=== PATIENT | female | born 1980 | race Caucasian/White ===

== ENCOUNTER 2018-03-09 16:31 | Emergency (ER) | payer OTHER ==
[2018-03-09 17:06] VITALS: BP 107/65; PULSE 83; TEMP 99.1; BMI 23.0
--- NOTE | 2018-03-09 17:14 | PDOC ---
Rapid Medical Evaluation Chief Complaint: Pain Time Seen by Provider: 03/09/18 17:05 Medical Evaluation: Allergies Allergy/AdvReac Type Severity Reaction Status Date / Time No Known Allergies Allergy Verified 03/09/18 17:03 Vital Signs Temp Pulse Resp BP Pulse Ox 99.1 F 83 18 107/65 100 03/09/18 17:03 03/09/18 17:03 03/09/18 17:03 03/09/18 17:03 03/09/18 17:03 03/09/18 17:10 I have performed a brief in-person evaluation of this patient. The patient presents with a chief complaint of: advised by PCP to come to ED due to possible kidney problem . patient report lower back pains which has been intermittent for months now. pt also report urinary frequency. patient report fever of 101F this AM which she didnt take any medication but no fever now Pertinent physical exam findings: no CVAT. abdomen soft NT/ND I have ordered the following: CBC/CMP/UA/UCX/KUB The patient will proceed to the ED for further evaluation. 03/09/18 17:12 Discharge Disposition - Diagnosis Dysuria - Referrals Referrals: Loni Cardenas MD [Primary Care Provider] - - Patient Instructions - Post Discharge Activity
--- NOTE | 2018-03-09 17:41 | PDOC ---
History of Present Illness - General Chief Complaint: Pain Stated Complaint: SENT BY PCP, KIDNEY PROBLEMS Time Seen by Provider: 03/09/18 17:05 History Source: Patient Exam Limitations: No Limitations - History of Present Illness Initial Comments: 03/09/18 17:36 HISTORY OF PRESENT ILLNESS: 37-year-old woman without significant medical history presents emergency departments with bilateral flank pain for the past 2 months nonbloody diarrhea for 2 days. Patient reports intermittent fevers for which she has taken Tylenol to help control. Patient states her primary doctor started her workup including a renal ultrasound just done on 02/16 revealing no acute pathology at that time. Patient denies any headaches, chest pain, shortness of breath, nausea, vomiting. Patient reports she spent 2 weeks in [place] and the end of January and then went [place] for one week. Prior to travel she had a urinary tract infection for which she was on antibiotics PAST MEDICAL HISTORY: Denies past medical history SURGICAL HISTORY: Denies ALLERGIES: No known drug allergies REVIEW OF SYSTEMS General/Constitutional: +fever and chills. Denies weakness, weight change. HEENT: Denies change in vision. Denies ear pain or discharge. Denies sore throat. Cardiovascular: Denies chest pain or shortness of breath. Respiratory: Denies cough, wheezing, or hemoptysis. Gastrointestinal: Denies nausea, vomiting, or constipation. +bloody brown diarrhea for 2 days Genitourinary: Denies dysuria, frequency, or change in urination. Musculoskeletal: Denies joint or muscle swelling or pain. Denies neck pain. Lower back pain. Skin and breasts: Denies rash or easy bruising. Neurologic: Denies headache, vertigo, loss of consciousness, or loss of sensation. Psychiatric: Denies depression or anxiety. Endocrine: Denies increased thirst. Denies abnormal weight change. Hematologic/Lymphatic: Denies anemia, easy bleeding, or history of blood clots. Allergic/Immunologic: Denies hives or skin allergy. Denies latex allergy. PHYSICAL EXAM General Appearance: Well-appearing, appropriately dressed. No apparent distress , no intoxication. HEENT: EOMI, PERRLA, normal ENT inspection, normal voice, TMs normal, pharynx normal. No conjunctival pallor. No photophobia, scleral icterus. Neck: Supple. Trachea midline. No tenderness, rigidity, carotid bruit, stridor , lymphadenopathy, or thyromegaly. Respiratory/Chest: Lungs CTAB. No shortness of breath, chest tenderness, respiratory distress, accessory muscle use. No crackles, rales, rhonchi, stridor , wheezing, dullness Cardiovascular: RRR. S1, S2. No JVD, murmur, bradycardia, tachycardia. Vascular Pulses: Dorsalis-Pedis (R): 2+, Dorsalis-Pedis (L): 2+ Gastrointestinal/Abdominal: Normal bowel sounds. Abdomen soft, non-distended. LLQ tenderness with guarding. No rebound tenderness. No organomegaly, pulsatile mass, hernia, hepatomegaly, splenomegaly. Lymphatic: No adenopathy, tenderness. Musculoskeletal/Extremities: Normal inspection. FROM of all extremities, normal capillary refill. Pelvis Stable. Bilateral CVA tenderness. No tenderness to extremities, pedal edema, swelling, erythema or deformity. Integumentary: Appropriate color, dry, warm. No cyanosis, erythema, jaundice or rash Neurologic: system development manager II-XII intact. Fully oriented, alert. Appropriate mood/affect. Motor strength 5/5. No appreciable EOM palsy, facial droop or sensory deficit. Past History - Past Medical History Allergies/Adverse Reactions: Allergies Allergy/AdvReac Type Severity Reaction Status Date / Time No Known Allergies Allergy Verified 03/09/18 17:03 Home Medications: Ambulatory Orders Ciprofloxacin [Cipro (Restricted To Id)] 500 mg PO Q12H #14 tablet 03/09/18 metroNIDAZOLE [Flagyl -] 500 mg PO TID #21 tablet 03/09/18 COPD: No - Immunization History Immunization Up to Date: Yes - Suicide/Smoking/Psychosocial Hx Smoking History: Never smoked Have you smoked in the past 12 months: No Hx Alcohol Use: No Drug/Substance Use Hx: No Substance Use Type: None *Physical Exam - Vital Signs Last Vital Signs Temp Pulse Resp BP Pulse Ox 99.1 F 83 18 107/65 100 03/09/18 17:03 03/09/18 17:03 03/09/18 17:03 03/09/18 17:03 03/09/18 17:03 ED Treatment Course - LABORATORY CBC & Chemistry Diagram: 03/09/18 17:45 03/09/18 17:45 - ADDITIONAL ORDERS Additional order review: Laboratory Results 03/09/18 17:08 Urine HCG, Qual Negative - RADIOLOGY Radiology Studies Ordered: Category Date Time Status ABDOMEN & PELVIS CT WITH CONTR [CT] Stat CT Scan 03/09/18 17:34 Ordered Medical Decision Making - Medical Decision Making 03/09/18 17:41 A/P: 37-year-old female with bilateral flank pain for 2 months and bloody diarrhea for 2 days Left lower quadrant tenderness with guarding Bilateral CVA tenderness noted DDx: Perforation, obstruction, colitis, diverticulitis, pyelonephritis, C. difficile Labs, urine, CTAP 03/09/18 20:01 CAT scan of the abdomen and pelvis as read by Dr. Sandoval: There is possible mild subtle concentric wall thickening along the length of the rectosigmoid colon-? Possible acute colitis. Correlate clinically 2.4 cm involuted right ovarian follicles/cyst 1.2 cm left ovarian follicle/cyst A nonspecific 1.1 cm right hepatic lobe hypodensity focus is seen-? Possible hemangioma versus other pathology correlate with nonemergent sonography. Diffuse hepatic steatosis A probable subtle 1 cm left adrenal nodule is seen probably representing an adenoma. Biochemical evaluation is suggested. Correlate with MRI versus three- month follow-up noncontrast CT. I will treat pt for potential c-diff infection as patient was on antibiotics within the past 30 days. Laboratory findings and CAT scan results have been related to the patient. A copy of the CAT scan report is been provided for the patient to bring to her primary doctor for continued evaluation of liver hypodensity as well as adrenal nodule. Patient given the opportunity to ask questions and all questions have been answered. I will discharge the patient home on antibiotics for colitis and follow-up with her primary doctor. *DC/Admit/Observation/Transfer Diagnosis at time of Disposition: Colitis - Discharge Dispostion Disposition: HOME Condition at time of disposition: Stable Decision to Admit order: No - Prescriptions Prescriptions: Ciprofloxacin [Cipro (Restricted To Id)] 500 mg PO Q12H #14 tablet metroNIDAZOLE [Flagyl -] 500 mg PO TID #21 tablet - Referrals Referrals: Loni Cardenas MD [Primary Care Provider] - - Patient Instructions Additional Instructions: Take Flagyl 500 mg 3 times a day until all medications are completed. Take ciprofloxacin 500 mg twice a day until all medications are completed. The CAT scan shows colitis but also a 1 cm growth on her left adrenal glands. He also able 1.1 cm growth in your liver. These are most likely benign incidental findings on the CAT scan but see your primary doctor for continued evaluation. Return to the emergency department for any concerns. - Post Discharge Activity
[2018-03-09 17:44] LABS: URINE APPEARANCE CLEAR; URINE BILIRUBIN NEGATIVE (<2.0 mg/dL); URINE COLOR STRAW; URINE GLUCOSE (UA) NEGATIVE (NEGATIVE); URINE KETONE NEGATIVE (NEGATIVE); URINE LEUK ESTERASE TRACE (NEGATIVE); URINE NITRITE NEGATIVE (NEGATIVE); URINE PROTEIN NEGATIVE (NEGATIVE); URINE UROBILINOGEN NEGATIVE mg/dL (0.2-1.0)
[2018-03-09 17:54] LABS: BASO % 0.8 % (0-2.0); EOS % 2.1 % (0-4.5); HEMATOCRIT 37.7 % (32.4-45.2); HEMOGLOBIN 12.2 GM/dL (10.7-15.3); LYMPH % 17.8 % (8-40); MCH 28.8 pg (25.7-33.7); MCHC 32.4 g/dl (32.0-36.0); MEAN CELL VOLUME 88.9 fl (80-96); MEAN PLT VOLUME 9.7 fl (7.5-11.1); MONO % 7.2 % (3.8-10.2); NEUT % 72.1 % (42.8-82.8); PLATELET COUNT 241 K/MM3 (134-434); RBC 4.24 M/mm3 (3.60-5.2); RDW 13.4 % (11.6-15.6); WHITE BLOOD COUNT 7.4 K/mm3 (4.0-10.0)
[2018-03-09 17:57] LABS: EPI CELLS RARE /HPF (FEW); URINE MUCUS RARE
[2018-03-09 18:23] LABS: ALBUMIN 4.3 g/dl (3.4-5.0); ALK PHOS 79 U/L (45-117); ANION GAP 5 MMOL/L (8-16); BILIRUBIN,TOTAL 0.2 mg/dL (0.2-1); BLOOD UREA NITROGEN 9 mg/dL (7-18); CALCIUM 8.9 mg/dL (8.5-10.1); CHLORIDE 109 mmol/L (98-107); CO2 25 mmol/L (21-32); CREATININE 0.7 mg/dL (0.55-1.3); GLUCOSE,RANDOM 88 mg/dL (74-106); POTASSIUM 3.8 mmol/L (3.5-5.1); SGOT/AST 16 U/L (15-37); SGPT/ALT 25 U/L (13-61); SODIUM 139 mmol/L (136-145); TOT PROT 7.5 g/dl (6.4-8.2)
== END 2018-03-09 20:28 | disposition home or self-care (01) ==
LOC: JERFT 16:31
DX: K52.9 Noninfective gastroenteritis and colitis, unspecified (principal); N83.202 Unspecified ovarian cyst, left side; N83.201 Unspecified ovarian cyst, right side
CPT/HCPCS: 36415; 74177-TC; 80053; 81003; 81015; 84703; 85025; 87086; 99281-25

== ENCOUNTER 2018-04-04 09:48 | Day surgery (SDC) | payer OTHER ==
[2018-04-03 14:09] VITALS: BMI 23.1
[2018-04-04 12:05] VITALS: TEMP 18
[2018-04-04 15:47] VITALS: BP 103/75; PULSE 56
--- NOTE | 2018-04-05 13:09 | PATH ---
Surgical Pathology Report Patient Name: CESAR BOSCH [facility]. Rec. #: [id number] /Age/Gender: 1980 (Age: 37) / F Account: [id number] Location: [facility]-ENDOSCOPY Taken: 04/04/2018 Received: 04/04/2018 Reported: 04/05/2018 Physicians: Deana Caceres M.D. Specimen(s) Received A: BX DUODENUM B: BX ANTRUM C: BX ILEUM D: BX CECUM E: BX RECTAL POLYP F: RECTAL POLYP Clinical History Abnormal CT Scan, bloody diarrhea, dyspepsia, rule out celiac Postoperative diagnosis: Atrophic gastritis, rectal polyp Final Diagnosis A. DUODENUM, BIOPSY: DUODENUM MUCOSA WITH FOCAL MILD NON-SPECIFIC CHRONIC DUODENITIS. NO HISTOLOGIC EVIDENCE OF CELIAC DISEASE. B. ANTRUM, BIOPSY: GASTRIC MUCOSA WITH MILD CHRONIC GASTRITIS IMMUNOSTAIN FOR H. PYLORI IS NEGATIVE. NEGATIVE FOR INTESTINAL METAPLASIA. C. ILEUM, BIOPSY: ILEUM MUCOSA WITH MILD NONSPECIFIC ILEITIS. NO HISTOLOGIC EVIDENCE OF INTRAEPITHELIAL LYMPHOCYTOSIS. D. CECUM, BIOPSY: COLONIC MUCOSA WITH REACTIVE LYMPHOID AGGREGATES. E. RECTAL POLYP, BIOPSY: POLYPOID COLONIC MUCOSA WITH SURFACE HYPERPLASTIC CHANGE AND REACTIVE LYMPHOID AGGREGATES. F. RECTAL POLYP, BIOPSY: POLYPOID COLONIC MUCOSA WITH FOCAL ACTIVE INFLAMMATION IN THE LAMINA PROPRIA, CRYPTITIS, AND LYMPHOID AGGREGATES. ARCHITECTURAL FEATURES OF CHRONICITY ARE NOT PRESENT. Electronically Signed Vickey Quiñones M.D. Gross Description A. Received in formalin, labeled "biopsy second portion of duodenum and bulb" are 5 sal, irregular portions of soft tissue ranging from 0.2-0.5 cm. in greatest dimension. The specimens are submitted in toto in one cassette. B. Received in formalin, labeled "antrum" are 4 sal, irregular portions of soft tissue ranging from 0.3-0.5 cm. in greatest dimension. The specimens are submitted in toto in one cassette. C. Received in formalin, labeled "ileum" are 2 sal, irregular portions of soft tissue measuring 0.3 and 0.4 cm. in greatest dimension. The specimens are submitted in toto in one cassette. D. Received in formalin, labeled "cecum" are 6 sal, irregular portions of soft tissue ranging from 0.2-0.4 cm. in greatest dimension. The specimens are submitted in toto in one cassette. E. Received in formalin, labeled "rectal polyp" is a sal, irregular portion of soft tissue measuring 0.3 cm. in greatest dimension. The specimen is submitted in toto in one cassette. F. Received in formalin, labeled "rectosigmoid" are 4 sal, irregular portions of soft tissue ranging from 0.2-1.0 cm. in greatest dimension. The specimens are submitted in toto in one cassette. 04/04/201804/04/2018
== END 2018-04-04 13:00 | disposition home or self-care (01) ==
LOC: JASU-ENDO 09:48
PROVIDERS: ATTEND Internal Medicine Gastroenterology
PROC: 0DBH8ZX Excision of Cecum, Via Natural or Artificial Opening Endoscopic, Diagnostic (ICD-10-PCS; 2018-04-04)
PROC: 0DBN8ZX Excision of Sigmoid Colon, Via Natural or Artificial Opening Endoscopic, Diagnostic (ICD-10-PCS; 2018-04-04)
PROC: 0DBB8ZX Excision of Ileum, Via Natural or Artificial Opening Endoscopic, Diagnostic (ICD-10-PCS; 2018-04-04)
PROC: 0DBP8ZX Excision of Rectum, Via Natural or Artificial Opening Endoscopic, Diagnostic (ICD-10-PCS; principal; 2018-04-04 10:45)
DX: K62.1 Rectal polyp (principal)
CPT/HCPCS: 84703; 87045; 87046; 87177; 87209; 88305-TC; 88342-TC